=== PATIENT | male | born 1980 | race Caucasian/White ===

== ENCOUNTER 2020-09-15 05:03 | Emergency (ER) | payer OTHER, SELFPAY ==
[2020-09-15] VITALS (10 sets, daily range): BP systolic 151–202; BP diastolic 98–117; PULSE 69–72; RESP 18; TEMP 36.5; O2SAT 96–98
--- NOTE | ~2020-09-15 | CT_ITS ---
EXAMINATION: CT brain wo con DATE: 09/15/2020 05:44 INDICATION: Headache. TECHNIQUE: Computed tomography (CT) of the head was performed without intravenous contrast. The mA wa s adjusted according to patient size. Iterative reconstruction technique was employed. The dose-lengt h product was 605.33 mGy-cm. COMPARISON: Head CT 12/01/2007 FINDINGS: There is no intracranial hemorrhage, acute infarction, or abnormal intracranial mass lesion . The ventricles are normal in size. The orbits are normal. There is mucosal thickening in the parana griselda sinuses. The mastoid air cells are normal. There are many old healed facial bone fractures. IMPRESSION: 1. Normal brain. Reviewed, dictated and finalized at location A. REPAIR IMPRESSION: 1. Normal brain.
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
--- NOTE | 2020-09-15 05:39 | PC.NURSE ---
pt to ct via stretcher
[2020-09-15 05:42] LABS: Basophils Absolute Auto 0.1 K/mm3 (0.0-0.1); Basophils Percent Auto 0.5 % (0.2-1.2); Eosinophils Absolute Auto 0.3 K/mm3 (0-0.3); Eosinophils Percent Auto 2.9 % (0-4.4); Hematocrit 46.3 % (42.0-52.0); Hemoglobin 15.8 g/dL (14.0-18.0); Immature Granulocyte Absolute 0.04 K/mm3 (0.00-0.031); Immature Granulocyte Percent A 0.4 % (0-0.5); Lymphocytes Absolute Auto 1.15 K/mm3 (0.9-3.2); Lymphocytes Percent Auto 12.3 % (18.3-44.2); Mean Corpuscular HGB Conc 34.1 g/dl (32-36); Mean Corpuscular Hemoglobin 29.8 pg (26-34); Mean Corpuscular Volume 87.2 fl (80-100); Mean Platelet Volume 10.9 fl (7.4-10.4); Monocytes Absolute Auto 0.7 K/mm3 (0.1-0.6); Monocytes Percent Auto 7.2 % (2.6-8.5); Neutrophils Absolute Auto 7.2 K/mm3 (1.3-6.7); Neutrophils Percent Auto 76.7 % (45.5-73.1); Platelet Count Result 229 k/mm3 (150-375); Red Blood Count 5.31 M/mm3 (4.6-6.20); Red Cell Distribution Width 11.4 % (11.5-14.5); White Blood Count 9.4 K/mm3 (4.5-10.0)
[2020-09-15 05:59] LABS: Anion Gap 7 mmol/L (8-16); Blood Urea Nitrogen 18 mg/dL (9-20); Carbon Dioxide 29 mmol/L (22-30); Chloride 103 mmol/L (98-107); Estimated CRCL calculation 71 ml/min; Estimated Glomerular Filt Rate > 60; Glucose 112 mg/dL (75-110); Potassium 4.3 mmol/L (3.4-5.0); Sodium 139 mmol/L (137-145)
[2020-09-15] MEDS: KETOROLAC 30 MG/ML VIAL (*BKC) IV PUSH (06:00)
[2020-09-15] MEDS: PROMETHAZINE HCL 25 MG/ML AMPUL 12.5 MG IV PUSH (06:00)
[2020-09-15] MEDS: SODIUM CHLORIDE 0.9% IV 1,000 ML 999 ML IV CONT (06:01)
[2020-09-15] MEDS: diphenhydrAMINE HCl INJ 50 MG/ML VIAL 25 MG IV PUSH (06:52)
[2020-09-15 18:35] LABS: SARS-CoV-2 RNA PCR Negative
== END 2020-09-15 07:44 | disposition home or self-care (01) ==
PROVIDERS: Emergency Provider Emergency Medicine; PCP Physician Assistant
DX: G43.909 Migraine, unspecified, not intractable, without status migrainosus (principal); Z20.828 Contact with and (suspected) exposure to other viral communicable diseases; I10 Essential (primary) hypertension; F31.9 Bipolar disorder, unspecified; E78.00 Pure hypercholesterolemia, unspecified; G47.33 Obstructive sleep apnea (adult) (pediatric); F17.210 Nicotine dependence, cigarettes, uncomplicated
CPT/HCPCS: 36415; 70450; 80048; 85025; 87635; 96361; 96374; 96375; 99284; C9803; J1200; J1885; J2550; J7030; U0003

== ENCOUNTER 2020-09-17 15:39 | Emergency (ER) | payer OTHER, SELFPAY ==
[2020-09-17 15:46] VITALS: BP 169/115; PULSE 97; RESP 16; TEMP 37.7; O2SAT 98
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
[2020-09-17 17:35] VITALS: BP 137/105; PULSE 76; RESP 18; O2SAT 98
[2020-09-17] MEDS: KETOROLAC 30 MG/ML VIAL (*BKC) IV PUSH (17:57)
[2020-09-17] MEDS: SODIUM CHLORIDE 0.9% IV 1,000 ML 999 ML (17:57)
[2020-09-17] MEDS: PROCHLORPERAZINE EDISYLATE 10 MG/2 ML VIAL IV PUSH (17:59)
--- NOTE | 2020-09-17 18:02 | PC.NURSE ---
Note pt continually texting on the phone while giving meds and initiating IVF. Pt encouraged to let stop texting and to rest to allow meds to work. Warm blanket given to pt's neck for c/o neck pain with headache.
--- NOTE | 2020-09-17 18:33 | PC.NURSE ---
Called to pt's room, states I'm ready to go, I just, I'm itching to go . Asked patient if he's actually itching, states no, I'm ready to go . Note entire liter almost infused. Dr. Cuba made aware.
== END 2020-09-17 18:42 | disposition home or self-care (01) ==
PROVIDERS: Emergency Provider Emergency Medicine; PCP Physician Assistant
DX: R51.9 Headache, unspecified (principal); F31.9 Bipolar disorder, unspecified; E78.5 Hyperlipidemia, unspecified; I10 Essential (primary) hypertension; G47.30 Sleep apnea, unspecified
CPT/HCPCS: 96361; 96374; 96375; 99284; J0780; J1885; J7030

== ENCOUNTER 2024-04-12 12:44 | Outpatient (CLI) | payer OTHER, SELFPAY ==
--- NOTE | ~2024-04-12 | US_ITS ---
US renal BI 04/12/2024 14:23 Procedure: Realtime transabdominal ultrasound of the kidneys and bladder. Indication: Acute renal failure Comparison: No prior studies for comparison. Findings: Renal echotexture is normal bilaterally without hydronephrosis, contour deforming mass or r enal calculus. The right kidney measures 8.4 cm and left kidney measures 9.9 cm. Bladder within norm al limits. Impression: 1: Unremarkable renal ultrasound. No stones, masses or hydronephrosis. Reviewed, dictated and finalized at location B. Impression: 1: Unremarkable renal ultrasound. No stones, masses or hydronephrosis.
== END 2024-04-12 12:45 | disposition home or self-care (01) ==
LOC: ANHIMG 12:49
PROVIDERS: PCP Family Medicine; Visit Provider Physician Assistant Medical
DX: N17.9 Acute kidney failure, unspecified (principal)
CPT/HCPCS: 76775

== ENCOUNTER 2024-05-08 14:19 | Outpatient (CLI) | payer OTHER, SELFPAY ==
--- NOTE | ~2024-05-08 | US_ITS ---
EXAMINATION: US thyroid DATE: 05/08/2024 15:06 INDICATION: Nontoxic goiter. Palpable nodule. TECHNIQUE: Multiple ultrasound images of the thyroid were obtained. COMPARISON: None. FINDINGS: The right thyroid lobe measures 4.5 x 1.8 x 1.4 cm. The left thyroid lobe measures 4.5 x 1.7 x 1.5 c m. The isthmus measures 2 mm. There is normal echotexture and echogenicity throughout the thyroid gla nd. No discrete nodules identified. Normal vascular flow is present. IMPRESSION: Normal thyroid ultrasound findings. Reviewed, dictated and finalized at location K.
--- NOTE | 2024-05-08 14:48 | ECHO_ITS ---
Patient Info Name: Jose Luis Moyer Age: 43 years : 1980 Gender: Male Ht: 71 in Wt: 190 lbs BSA: 2.09 m2 HR: 78 bpm BP: 140 / 85 mmHg Heart Rhythm: Sinus Rhythm Technical Quality: Good Exam Date: 05/08/2024 3:36 PM Exam Location: Echo Lab Patient Status: Outpatient Admit Date: 05/08/2024 Staff Ordering Physician: Maxine Alcaraz PA-C Spanisher: Latia Hardy RDCS Attending Provider: Maxine Alcaraz PA-C Referring Physician: Kieran BRIDGES; Exam Type: CA echo doppler color flow Study Info Indications - CHEST PAIN, UNSP Complete two-dimensional, color flow and Doppler transthoracic echocardiogram is performed. Summary 1. Complete two-dimensional, color flow and Doppler transthoracic echocardiogram is performed. 2. Left ventricular chamber dimension is normal. 3. Left ventricular systolic function is normal, estimated at 60-65%. 4. The left ventricular diastolic function is grade I diastolic dysfunction. 5. E/e' 4 is not elevated. 6. There is trace tricuspid valve regurgitation. 7. No pulmonary hypertension, estimated pulmonary arterial systolic pressure is 24 mmHg. 8. There is trace pulmonic regurgitation. Left Ventricle E/e' 4 is not elevated. Left ventricular chamber dimension is normal. Left ventricular systolic function is normal, estimated at 60-65%. The left ventricular diastolic function is grade I diastolic dysfunction. Right Ventricle Right ventricular systolic function is normal and with normal TAPSE 2.3 cm. Right ventricular chamber dimension is normal. Left Atria Left atrial chamber dimension is normal. Right Atria Right atrial chamber dimension is normal. Aortic Valve The aortic valve is trileaflet. There is no aortic valve stenosis. There is no aortic valve regurgitation. Pulmonic Valve There is trace pulmonic regurgitation. Mitral Valve There is no mitral valve stenosis. There is no mitral valve regurgitation. Tricuspid Valve There is trace tricuspid valve regurgitation. No pulmonary hypertension, estimated pulmonary arterial systolic pressure is 24 mmHg. Pericardium/Pleural There is no pericardial effusion. Inferior Vena Cava Normal inferior vena cava with >50% collapse upon inspiration consistent with normal right atrial pressure, 5 mmHg. Aorta The aortic root size at the sinus of Valsalva is normal. Left Ventricular Outflow Tract Name Value Normal LVOT 2D LVOT Diameter 2.0 cm LVOT Doppler LVOT Peak Gradient 4 mmHg LVOT Mean Gradient 2 mmHg LVOT VTI 16 cm LVOT VTI/AV VTI Ratio 0.9 LVOT Stroke Volume 50 ml LVOT CO 4.4 l/min LVOT CI 2.1 l/min/m2 Pulmonic Valve Name Value Normal PV Doppler PV Peak Gradient 4 mmHg Mitral Valve
--- NOTE | 2024-05-08 14:48 | ECG_ITS ---
Test Date: 2024-05-08 15:12:35 Measurements Intervals [place] Rate: 84 P: 21 RI: 115 QRS: 37 QRSD: 110 T: 46 QT: 366 QTc: 435 Interpretive Statements SINUS RHYTHM WITH SHORT RI INTERVAL INCOMPLETE RIGHT BUNDLE BRANCH BLOCK No previous ECG available for comparison Electronically Signed On 05-09-2024 17:02:24 CDT by Steve Cardona M.D.
== END 2024-05-08 14:20 | disposition home or self-care (01) ==
PROVIDERS: PCP Family Medicine; Visit Provider Student in an Organized Health Care Education/Training Program
DX: R07.9 Chest pain, unspecified (principal); R06.00 Dyspnea, unspecified; R04.9 Hemorrhage from respiratory passages, unspecified; I45.10 Unspecified right bundle-branch block
CPT/HCPCS: 76536; 93005; 93306

== ENCOUNTER 2025-05-16 08:35 | Outpatient (CLI) | payer OTHER, SELFPAY ==
--- OUTSIDE RECORDS SUMMARY | 2025-05-16 08:43 | XMS_ITS | Continuity of Care Document ---
Author Organization [facility] Address [id number] [place] [address] [address] [place] [address] Phone Care Team Providers Care Ic Design Manager Name Role Phone Estefania Bryan Unavailable Unavailable Advance Directives Directive Yes / No Effective Date File Name No Information Encounters Encounter Description Practice Location Reason(s) For Visit Diagnoses Date Provider Providers Copied on Encounter [facility], [address], [place], [place], [id number], [place] tel:[phone] [facility] No Information [address] , [address], [place], [address], [place]. tel:[phone] Family History Family Member Type Diagnosis Age At Onset No Information Payers Payer name Insurance type Covered republican ID Authoriza tion(s) No Information Social History Type Description Quantity Date Captured Comments Sex Male Smoking Status No Information Chief Complaint And Reason For Visit No Information Reason For Referral Reason For Referral No Information History Of Present Illness Encounter Date Complaint History Of Prese nt Illness No Information Functional Status Date Functional Assessmen t No Information Instructions Date Instruction Additional Infor mation No Information Assessments Type Assessment Date No Information Patient Care Teams Name Effective Dates (start - stop) Status Members No Information
--- OUTSIDE RECORDS SUMMARY | 2025-05-16 08:43 | XMS_ITS | Clinical Summary ---
Author Organization [facility] Address [address] [place] [phone] Phone Care Team Providers Care Community Health Consultant Name Role Phone Rachel Edmondson MD Primary Care Provider [phone] Allergies No known active allergies Medications lisinopril (PRINIVIL,ZESTR IL) 20 MG tablet Take 20 mg by mouth daily Active atorvastatin (LIPITOR) 40 MG tablet Take 40 mg by mouth 1 (one) time each day Active lamoTRIgine (LaMICtal) 200 MG tablet Take 200 mg by mouth 1 (one) time each day Active modafinil (PROVIGIL) 200 MG tablet Take 200 mg by mouth 1 (one) time each day Active ALPRAZolam XR (XANAX XR) 3 MG 24 hr tablet Take 3 mg by mouth 1 (one) time each day in the morning Active buPROPion SR (WELLBUTRIN SR) 100 MG 12 hr tablet TAKE 1 TABLET BY MOUTH ONCE DAILY IN THE MORNING 0 07/01/2019 Active buPROPion SR (WELLBUTRIN SR) 200 MG 12 hr tablet TAKE 1 TABLET BY MOUTH ONCE DAILY IN THE MORNING 1 09/06/2019 Active Active Problems Problem Noted Date Diagnosed Date Proteinuria Hypertension Back pain Scoliosis Obstructive sleep apnea syndrome Hyperlipidemia Family History Medical History Relation Comments Diabetes Father Kidney disease Father Nephrolithiasis Mother Kidney cancer Paternal Grandfather Kidney disease Paternal Grandfather Relation Status Comments Father Mother Paternal Grandfather Social History Tobacco Use Types Packs/Day Years Used Date Smoking Tobacco: Heavy Smoker Cigarettes Smokeless Tobacco: Never Tobacco Cessation:Ready to Q uit: No; Counseling Given: Yes Alcohol Use Standard Drinks/Week Comments Not Currently 0 (1 standard drink = 0.6 oz pur e alcohol) Sex and Gender Information Value Date Recorded Sex Assigned at Not on file Legal Sex Male 8:51 AM MDT Gender Identity Not on file Sexual Orientation Not on file Last Filed Vital Signs Vital Sign Reading Time Taken Comments Blood Pressure 120/68 09/10/2019 3:23 PM FITTER HELPER Pulse - - Temperature 36.2 C (97.1 F) 09/10/2019 3:23 PM FITTER HELPER Respiratory Rate 18 09/10/2019 3:23 PM FITTER HELPER Oxygen Saturation - - Inhaled Oxygen Concentration - - Weight 81.2 kg (179 lb) 09/10/2019 3:23 PM FITTER HELPER Height 180.3 cm (5' 11) 09/10/2019 3:23 PM FITTER HELPER Body Mass Index 24.97 09/10/2019 3:23 PM FITTER HELPER Plan of Treatment Health Maintenance Due Date Last Done Comments Influenza Vaccine (#1) 2025 Insurance Care Teams Community Health Consultant Relationship Specialty Start Date End Date Rachel Edmondson MD [address] [facility] [address] [place] [address] PCP - General Internal Medicine 02/08/19
--- OUTSIDE RECORDS SUMMARY | 2025-05-16 08:43 | XMS_ITS | Clinical Summary ---
Author Organization [facility] [address] [facility] [address] Address [address] [place] [address] Care Team Providers Care Musical String Maker Name Role Phone Carla Mayfield MD Primary Care Provider [phone] Allergies No known active allergies Medications ALPRAZolam XR (XANAX XR) 3 mg 24 hr tablet Take 1 tablet (3 mg total) by mouth daily Active lisinopriL (PRINIVIL,ZESTR IL) 10 mg tablet Take 1 tablet (10 mg total) by mouth daily 04/24/2022 Active cariprazine (Vraylar) 1.5 mg capsule capsule TAKE 1 CAPSULE BY MOUTH ONCE DAILY FOR 30 DAYS Active methylphenidate ER (CONCERTA) 54 mg CR tablet TAKE 1 TABLET BY MOUTH ONCE DAILY IN THE MORNING FOR 30 DAYS Active lamoTRIgine (LaMICtal) 200 mg tablet Take 1 tablet (200 mg total) by mouth nightly Active Active Problems Problem Noted Date Diagnosed Date Back pain 08/17/2024 Hyperlipidemia 08/17/2024 Hypertension 08/17/2024 Obstructive sleep apnea syndrome 08/17/2024 Proteinuria 08/17/2024 Scoliosis 08/17/2024 Dizziness 07/09/2021 Medical History Medical History Date Comments Sleep apnea Hyperlipidemia Hypertension Family History Medical History Relation Name Comments Diabetes Father Heart attack Father Relation Name Status Comments Father Social History Tobacco Use Types Packs/Day Years Used Date Smoking Tobacco: Former Cigarettes Tobacco Cessation:Counseling Given: Not Answered Personal Safety Answer Date Recorded Getting School Help Needed Not on file 12/16 Sex and Gender Information Value Date Recorded Sex Assigned at Not on file Legal Sex Male 11:59 PM MOLD PARTER Gender Identity Not on file Sexual Orientation Not on file Obstetrics History Last Filed Vital Signs Vital Sign Reading Time Taken Comments Blood Pressure 143/98 07/11/2024 3:39 PM CDT Pulse 106 07/11/2024 3:39 PM CDT Temperature 36.7 C (98 F) 07/29/2014 5:25 AM CDT Respiratory Rate - - Oxygen Saturation 95% 07/11/2024 3:39 PM CDT Inhaled Oxygen Concentration - - Weight 89.1 kg (196 lb 6.4 oz) 07/11/2024 3:39 P M CDT Height 180.3 cm (5' 11) 07/11/2024 3:39 PM CDT Body Mass Index 27.39 07/11/2024 3:39 PM CDT Plan of Treatment Health Maintenance Due Date Last Done Comments Colon Cancer Screening-Colonoscopy 1980 Depression Screening 1980 Hepatitis C Screening 1980 Regular Well Visit/Exam 18-64 1997 HPV Vaccines (1 - 3-dose SCD M series) 2006 DTaP/Tdap/Td Vaccine (3 - Td or Tdap) 10/23/2023 10/23/2013, 09/08/2012, 10/03/1992 Influenza Vaccine (#1) 2025 09/08/2012 Hepatitis B Screening Completed 06/06/2013 , 01/03/2013 Pneumococcal vaccine <65 Aged Out No longer eligible based on patient's age to complete this topic Insurance [facility] CHOICE PLUS Member Subscriber Plan / Payer (Ef fective 2022-Present) Name:Jose Luis Moyer Jr. Relation to Subscriber:Self Name:Jose Luis Moyer Jr. Payer ID:[id number] (NAIC) Type:[facility] HMO/PPO Address: [id number] Member Subscriber Plan / Payer (Ef fective 2022-Present) Name:Jose Luis Moyer Jr. Relation to Subscriber:Self Name:Jose Luis Moyer Jr. Payer ID:[id number] (NAIC) Type:[facility] HMO/PPO Address: [place] [id number] Care Teams Musical String Maker Relationship Specialty Start Date End Date Carla Mayfield MD PCP - General Family Medicine 09/24/24
--- OUTSIDE RECORDS SUMMARY | 2025-05-16 08:43 | XMS_ITS | Patient Health Record ---
Author Organization [facility] [employer] [facility] Address [address] [facility] [address] [place] [address] Care Team Providers Care Extruder Tender Name Role Phone Carla Mayfield MD Primary Care Provider Tyrone Lea Unavailable [phone] Allergies No Known Allergies Reason For Referral No Information Medications Medication SIG (Take, Route, Frequency, Duration) Notes Start Date End Date Status Lisinopril 10 MG Oral 11/16/2023 No t-Taking ALPRAZolam ER 3 MG 1 tablet in the morn ing Orally Once a day; Duration: 30 days 04/27/2024 Not-Taking Vraylar 3 MG 1 capsule Orally Onc e a day; Duration: 30 days 04/27/2024 Not-Takin g lamoTRIgine 200 MG 1 tablet Oral Once a day; Duration: 30 days 11/16/2023 Not-Takin g Meclizine HCl 25 MG Oral 11/16/2023 Not-Taking Atorvastatin Calcium 40 MG TAKE 1 TABLET BY MOUTH NIGHTLY Oral; Duration: 30 Days Active traZODone HCl 50 MG 0.5 to 1 tablet at bedtime Orally Once a day; Duration: 30 days As needed 04/24/2025 Active ALPRAZolam ER 3 MG 1 tablet Oral Once a day; Duration: 30 days 06/12/2024 Not-Takin g Vraylar 3 MG 1 capsule Oral Once a day; Duration: 30 days 11/16/2023 Not-Takin g amLODIPine Besylate 10 MG TAKE 1 TABLET BY MOUTH ONCE DAILY Oral; Duration: 30 Days Active lamoTRIgine 25 MG 1 tablet once a day for 14 days, 2 tablets once a day for 16 days Orally see sign; Duration: 30 days 04/24/2025 Active Losartan Potassium 100 MG TAKE 1 TABLET BY MOUTH ONCE DAILY Oral; Duration: 30 Days Active hydrOXYzine HCl 25 MG 1 tablet Orally three times a day; Duration: 30 days As needed 05/02/2025 Active QUEtiapine Fumarate 50 MG 1 tablet at be dtime Oral Once a day; Duration: 30 days Active Immunizations Vaccine Route Administration Date Status Comme nts Hep B, adult dosage Unknown 01/03/2013 Administered Hep B, adult dosage Unknown 06/06/2013 Administered Influenza, seasonal, injecta ble, preservative free, 3 yrs and above Unknown 09/08/2012 Administered Td (adult) preservative free Unknown 10/03/1992 Adminis tered Tdap Unknown 09/08/2012 Administered Tdap Unknown 10/23/2013 Administered Social History Sex Assigned At : Social History Observation Description Sex Assigned At Male Problems Problem Type SNOMED Code ICD Code Onset Dates Problem Status W/U Status Risk Notes Problem Bipolar affective disorder, currently depressed, moderate (318187452) Bipolar disorder, current episode depressed, moderate (F31.32) 11/16/19 24 Active confirmed Problem Mixed bipolar I disorder (44188146) Bipolar disorder, current episode mixed, unspecified (F31.60) Active confirmed Problem Generalized anxiety disorder (28112343) Generalized anxiety disorder (F41.1) 11/16/19 24 Active confirmed Problem Attention deficit hyperactivity disorder, predominantly inattentive type (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) Attention-deficit hyperactivity disorder, predominantly inattentive type (F90.0) 01/27/20 24 Active confirmed Vital Signs Heart Rate 106 /min 04/24/2025 Height-cm 180.34 cm 04/24/2025 Blood pressure diastolic 97 mm Hg 04/24/2025 Weight-kg 96.16 kg 04/24/2025 Height 71.00 in 04/24/2025 Blood pressure systolic 136 mm Hg 04/24/2025 Weight 212.0 lbs 04/24/2025 BMI 29.56 kg/m2 04/24/2025 Encounters Encounter Location Date Provider Diagnosis [facility] [employer] [facility] [address] [address] 07/24/2024 Tyrone Rawls [facility] [employer] [facility] [address] [address] 08/01/2024 Tyrone Rawls [facility], [facility] [address] [place] [address] 10/16/2024 Tyrone Rawls Bipolar disorder, current episode mixed, unspecified F31.60 ; Attention-deficit hyperactivity disorder, predominantly inattentive type F90.0 and Generalized anxiety disorder F41.1 [facility], [facility] [address] [place] [address] 11/22/2024 Tyrone Rawls [facility], [facility] [address] [place] [address] 04/03/2025 Tyrone Rawsl [facility], [facility] [address] [place] [address] 04/24/2025 Tyrone Rawls Bipolar disorder, current episode mixed, unspecified F31.60 ; Attention-deficit hyperactivity disorder, predominantly inattentive type F90.0 ; Generalized anxiety disorder F41.1 and Insomnia due to other mental disorder F51.05 [facility], [facility] [address] [place] [address] 06/12/2024 Tyrone Beckmana Generalized anxiety disorder F41.1 ; Attention-deficit hyperactivity disorder, predominantly inattentive type F90.0 and Bipolar disorder, current episode mixed, unspecified F31.60 [facility], [facility] [address] [place] [address] 07/11/2024 Tyrone Rawls [facility], [facility] [address] [place] [address] 07/12/2024 Tyrone Rawls Bipolar disorder, current episode mixed, unspecified F31.60 ; Attention-deficit hyperactivity disorder, predominantly inattentive type F90.0 and Generalized anxiety disorder F41.1 [facility], [facility] [address] [place] [address] 07/24/2024 Tyrone Rawls [facility], [facility] [address] [place] [address] 08/09/2024 [facility], [facility] [address] [place] [address] 10/18/2024 Tyrone Rawls [facility], [facility] [address] [place] [address] 10/22/2024 Tyrone Rawls Bipolar disorder, current episode mixed, unspecified F31.60 [facility] [employer] [facility] [address] [place] [address] 11/05/2024 [facility] [address] [place] [address] 04/25/2025 Tyrone Rawls [facility], [facility] [address] [place] [address] 04/29/2025 Tyrone Rawls Bipolar disorder, current episode depressed, moderate F31.32 Assessments Encounter Date Diagnosis (ICD Code) Assessment Notes Treatment Notes Treatment Clinical Notes Section Notes 04/29/2025 Bipolar disorder, current episode depressed, moderate (ICD-10 - F31.32) 04/24/2025 Attention-defici t hyperactivity disorder, predominantly inattentive type (ICD-10 - F90.0) 06/12/2024 Generalized anxiety disorder (ICD-10 - F41.1) 06/12/2024 Attention-defici t hyperactivity disorder, predominantly inattentive type (ICD-10 - F90.0) 07/12/2024 Bipolar disorder, current episode mixed, unspecified (ICD-10 - F31.60) 10/16/2024 Bipolar disorder, current episode mixed, unspecified (ICD-10 - F31.60) 10/22/2024 Bipolar disorder, current episode mixed, unspecified (ICD-10 - F31.60) 04/24/2025 Bipolar disorder, current episode mixed, unspecified (ICD-10 - F31.60) 04/24/2025 Generalized anxiety disorder (ICD-10 - F41.1) 07/12/2024 Attention-defici t hyperactivity disorder, predominantly inattentive type (ICD-10 - F90.0) 10/16/2024 Attention-defici t hyperactivity disorder, predominantly inattentive type (ICD-10 - F90.0) 06/12/2024 Bipolar disorder, current episode mixed, unspecified (ICD-10 - F31.60) 07/12/2024 Generalized anxiety disorder (ICD-10 - F41.1) 10/16/2024 Generalized anxiety disorder (ICD-10 - F41.1) 04/24/2025 Insomnia due to other mental disorder (ICD-10 - F51.05) 10/16/2024 Other 1. Major Depressive Disorder: - Patient reports increased depression since March or April, with fatigue, anhedonia, and lack of motivation. - Stopped taking Vraylar and other medications a few months ago. Plan: - Restart Vraylar at 1.5 mg daily for one week, then increase to 3 mg daily. - Reevaluate in 2 weeks to assess the effectiveness of the treatment. 2. Anxiety: - Patient reports anxiety about going out and has been off alprazolam ER for the last couple of months. Plan: - Prescribe propranolol 20 mg twice a day to help with blood pressure and anxiety symptoms, including racing heart. 3. Hypothyroidism: - Elevated TSH level of 5.2 (normal range up to 3.7). Plan: - Refer patient to primary care provider for further investigation and management of thyroid function. 4. Right Bundle Branch Block: - Patient reports recent hospitalization and diagnosis of a blockage in the right bundle branch of the heart. Plan: - Encourage patient to follow up with primary care provider and paint coating machine operator for further evaluation and management. 5. Kidney Function: - Patient reports kidneys operating at 56%. Plan: - Recommend patient to follow up with primary care provider for further evaluation. 6. Pulmonology: - Patient has been pushing off a scheduled appointment with a it admin. Plan: - Encourage patient to schedule and attend the appointment with the it admin for evaluation and management of any pulmonary issues. 7. Medication Management: - Patient has been off blood pressure medication and other prescribed medications for a while. Plan: - Reinstate propranolol 20 mg twice a day for blood pressure management. - Encourage patient to follow up with primary care provider for further medication management and monitoring. 8. Follow-up: - Schedule a follow-up appointment in 2 weeks to evaluate the effectiveness of the treatment plan. 9. Pharmacy: - [facility] pharmacy in [place]. 04/24/2025 Other Jose Luis Kaur, male patient with history of hypertension, chronic kidney disease (CKD), and psychiatric issues, presenting with recent hospitalization for hypertensive urgency and concerns about medication side effects. Hypertension Assessment: Patient reports recent hospitalization (approximately March 20-) for hypertensive urgency with blood pressure readings in 180-190s/140-150s range, refractory to IV medications. Currently managed with losartan 100 mg and amlodipine 10 mg. Associated symptoms included frequent headaches. Hypertension may be contributing to or exacerbated by declining kidney function. Plan: - Continue losartan 100 mg - Continue amlodipine 10 mg - Monitor blood pressure and kidney function Chronic Kidney Disease Assessment: Patient has confirmed CKD with fluctuating eGFR. Recent lab results show eGFR of 27 on April 03, improved to current level of 44 (baseline 58). Creatinine was 2.88 on April 03. TSH has normalized to 3.81. CKD etiology not specified but may be related to hypertension. Plan: - Monitor renal function - Adjust medications as needed to avoid further kidney damage - Consider nephrology referral if not already involved in care Bipolar Disorder Assessment: Patient reports current symptoms of irritability and anxiety, though anxiety has improved. Previously treated with Vraylar, which was effective but discontinued due to cost ($1800). Currently on quetiapine 50 mg, which has led to significant weight gain (20-30 pounds). Patient expresses interest in returning to lamotrigine for potential weight loss benefits. Plan: - Initiate lamotrigine: - Start at 25 mg once daily for 2 weeks - Increase to 50 mg once daily for 2 weeks - Advised patient to monitor for rash (known side effect) - Taper quetiapine: - Reduce to 25 mg (half tablet) at bedtime - Start trazodone for sleep: - Begin with 25 mg (half of 50 mg tablet) at bedtime - May increase to 50 mg if needed - Follow up in 1 month Weight gain Assessment: Patient reports 20-30 pound weight gain attributed to quetiapine use. Expresses desire to lose weight. Plan: - Transition from quetiapine to lamotrigine may assist with weight loss - Monitor weight during medication transition the note is transcribed using speech recognition software. It is a reflection of a visit with the patient. It might have some inaccuracy, including medication names and transcribing errors, though efforts have been made to correct them. Plan Of Treatment Next Appt Details Provider Name:Tyrone villalta, 05/23/2025 10:00:00 AM, [address], [address], [place], [address], Insurance Providers Payer Name Payer Address Payer Phone Subscriber Number Group Number Insured Name Patient Relationship to Insured Coverage Start Date Coverage End Date [facility] [address] [address] [place] [address] [id number] JOSE LUIS KAUR Self - patient is the insured Medical (General) History Medical History History ICD Code Problems: Attention deficit hyperactivit y disorder Bipolar affective disorder, current epis ode depression Bipolar affective disorder, current epis ode mixed Essential hypertension Generalized anxiety disorder Insomnia disorder related to another men jhon disorder , Surgical History Surgery Date(Month/Year) Other 10/03/2007
--- OUTSIDE RECORDS SUMMARY | 2025-05-16 08:43 | XMS_ITS | Clinical Summary ---
Author Organization [facility] [employer] Address [address] [facility] [place] [address] Care Team Providers Care Backhaul Driver Name Role Phone Elian Cardenas MD Primary Care Provider [phone] [facility] [employer],non-owned Affiliates and Associated Physician Practices is amultiple site organization consisting of ambulatory clinics and hospital sitesin [place], [place], [place] and [place]. This disclosure is being madepursuant to the Care Everywhere program and may not contain all information available regarding this patient. Last updated 18.[employer] Allergies No known active allergies Medications * Be aware that medications may not be up to date on this document. Alwaysverify current medications with the patient. lisinopril (PRINIVIL; ZESTRIL) 20 MG tablet Take 20 mg by mouth once daily. Active hydrocodone-acet aminophen (LORTAB) 10-500 MG tablet Take 1 Tab by mouth every 4 hours as needed. Active Social History Tobacco Use Types Packs/Day Years Used Date Smoking Tobacco: Never Smokeless Tobacco: Never Alcohol Use Standard Drinks/Week Comments Yes 0 (1 standard drink = 0.6 oz pur e alcohol) rarely Sex and Gender Information Value Date Recorded Sex Assigned at Not on file Legal Sex Male 10:07 AM CDT Gender Identity Not on file Sexual Orientation Not on file Last Filed Vital Signs Vital Sign Reading Time Taken Comments Blood Pressure 127/77 01/13/2013 11:18 AM CDT Pulse 81 01/13/2013 11:23 AM CDT Temperature 37.4 C (99.4 F) 01/10/2013 12:47 PM CDT Respiratory Rate 10 01/13/2013 10:27 AM CDT Oxygen Saturation 99% 01/13/2013 11:25 AM CDT Inhaled Oxygen Concentration - - Weight 92.5 kg (204 lb) 01/10/2013 12:47 PM CDT Height 177.8 cm (5' 10) 01/10/2013 12:47 PM CDT Body Mass Index 29.27 01/10/2013 12:47 PM CDT Plan of Treatment Health Maintenance Due Date Last Done Comments COLOGUARD (AGES 45-75) - COL ON CA SCREENING 1979 CT COLONOGRAPHY - COLON CA SCREENING 1980 FIT - COLON CA SCREENING 1980 FLEX SIG - COLON CA SCREENING 1979 LIPID TESTING 1979 HIV SCREENING 1994 HEPATITIS C SCREENING 08/22/1997 DTAP/TDAP/TD VACCINES (1 - Tdap) 1998 HEPATITIS B VACCINE (1 of 3 - 19+ 3-dose series) 1998 HPV VACCINE (1 - 3-dose SCDM series) 2006 COLON MONITORING 01/13/2023 01/13/2013, 01/13/2013 COLONOSCOPY - COLON CA SCREENING 01/13/2023 01/13/2013, 01/13/2013 Colorectal Cancer Screening 01/13/2023 COVID-19 VACCINE (1 - 2023-2 5 season) 2024 DEPRESSION SCREENING 10/03/2024 INFLUENZA VACCINE (#1) 2025 ZOSTER VACCINE (1 of 2) 2029 HIB VACCINE Aged Out No longer eligi ble based on patient's age to complete this topic MENINGOCOCCAL (Group B) VACCINE SHARED DECISION-MAKING Aged Out No longer eligible based on patient's age to complete this topic MENINGOCOCCAL GROUPS A/C/Y/W VACCINE Aged Out No longer eligible b ased on patient's age to complete this topic PNEUMOCOCCAL VACCINE Aged Out No long er eligible based on patient's age to complete this topic Procedures Procedure Name Priority Date/Time Associated Diagnosis Comments ENDOSCOPY, COLON, SCREENING Routine 01/13/2013 10:45 AM CDT from Last 3 Months or Most Recently Relevant to Health Maintenance Results * ENDOSCOPY, COLON, SCREENING (01/13/2013 10:45 AM CDT) Narrative [facility] ENDOSCOPY - 01/13/2013 10:45 AM CDT Procedure Note Meredith Gupta MD - 01/13/2013 10:45 AM CDT us Meredith Gupta MD GI PROCEDURE ORDERABLES Final R esult [facility] ENDOSCOPY from Last 3 Months or Most Recently Relevant to Health Maintenance Insurance [employer] Care Teams Backhaul Driver Relationship Specialty Start Date End Date Elian Cardenas MD [address] [place] [address] PCP - General Family Medicine 01/12/13
--- NOTE | 2025-05-16 09:10 | ECHO_ITS ---
Patient Info Name: Jose Luis Moyer Age: 44 years : 1980 Gender: Male Ht: 71 in Wt: 213 lbs BSA: 2.22 m2 HR: 79 bpm BP: 143 / 101 mmHg Technical Quality: Good Exam Date: 05/16/2025 9:18 AM Patient Status: O Admit Date: 05/16/2025 Exam Type: CA echo doppler color flow Complete two-dimensional, color flow and Doppler transthoracic echocardiogram is performed. Thoroughbred Horse Farm Manager: Virgen Ye Attending Provider: Maxine Alcaraz Summary 1. Complete two-dimensional, color flow and Doppler transthoracic echocardiogram is performed. 2. Left ventricular chamber dimension is normal. 3. Left ventricular systolic function is normal, estimated at 65-70. 4. The left ventricular diastolic function is normal. 5. E/e' 5 is not elevated. 6. There is trace mitral valve regurgitation. 7. There is mild tricuspid valve regurgitation. 8. No pulmonary hypertension, estimated pulmonary arterial systolic pressure is 30 mmHg. 9. There is trace pulmonic regurgitation. Left Ventricle E/e' 5 is not elevated. Left ventricular chamber dimension is normal. Left ventricular systolic function is normal, estimated at 65-70. The left ventricular diastolic function is normal. Right Ventricle Right ventricular chamber dimension is normal. Right ventricular systolic function is normal. Left Atria Left atrial chamber dimension is normal. Right Atria Right atrial chamber dimension is normal. Aortic Valve The aortic valve is trileaflet. There is no aortic valve stenosis. There is no aortic valve regurgitation. Pulmonic Valve There is trace pulmonic regurgitation. Mitral Valve There is no mitral valve stenosis. There is trace mitral valve regurgitation. Tricuspid Valve There is mild tricuspid valve regurgitation. No pulmonary hypertension, estimated pulmonary arterial systolic pressure is 30 mmHg. Pericardium/Pleural There is no pericardial effusion. Inferior Vena Cava Normal inferior vena cava with >50% collapse upon inspiration consistent with normal right atrial pressure, 5 mmHg. Aorta The aortic root size at the sinus of Valsalva is normal. Left Ventricular Outflow Tract Name Value Normal LVOT 2D LVOT Diameter 2.2 cm LVOT Doppler LVOT Peak Velocity 102 cm/s LVOT Peak Gradient 4 mmHg LVOT Mean Gradient 2 mmHg LVOT VTI 22 cm LVOT Stroke Volume 81 ml LVOT CO 6.4 l/min LVOT CI 2.9 l/min/m2 Pulmonic Valve Name Value Normal RVOT Doppler RVOT Peak Velocity 63 cm/s RVOT Peak Gradient 2 mmHg PV Doppler PV Peak Velocity 111 cm/s PV Peak Gradient 5 mmHg Mitral Valve Name Value Normal MV Diastolic Function MV E Peak Velocity 60 cm/s MV A Peak Velocity 53 cm/s MV E/A 1.1 MV Decel Time (PW) 253 ms MV Annular TDI MV E/e' (Septal) 5.6 MV E/e' (Lateral) 6.0 MV E/e' (Average) 5.8 Tricuspid Valve Name Value Normal TV Regurgitation Doppler TR Peak Velocity 251 cm/s TR Peak Gradient 21 mmHg Estimated PAP/RSVP RA Pressure 5 mmHg <=5 PA Systolic Pressure 30 mmHg <36 RV Systolic Pressure 30 mmHg <36 Aortic Valve Name Value Normal AV Doppler AV Peak Velocity 110 cm/s AV Peak Gradient 5 mmHg AV Area (Cont Eq Dav) 3.5 cm2 AV DI (Dav) 0.93 AV Regurgitation 2D LVOT Area 3.8 cm2 Ventricles Name Value Normal LV Dimensions 2D/MM IVS Diastolic Thickness (2D) 1.0 cm 0.6-1.0 LVID Diastole (2D) 4.7 cm 4.2-5.8 LVIW Diastolic Thickness (2D) 0.9 cm 0.6-1.0 LVID Systole (2D) 2.9 cm 2.5-4.0 LVOT Diameter 2.2 cm LV Mass (2D Cubed) 154.33 g 88.00-224.00 LV Mass Index (2D Cubed) 69 g/m2 49-115 Relative Wall Thickness (2D) 0.40 <=0.42 LV Fractional Shortening/Ejection Fraction 2D/MM LV Fractional Shortening (2D) 38 % 25-43 LV EF (2D Teichholz) 68 % LV Diastolic Volume (4C MOD) 115 ml LV EF (4C MOD) 61 % LV Diastolic Volume (2C MOD) 79 ml LV EF (2C MOD) 58 % LV Diastolic Volume (BP MOD) 102 ml 62-150 LV Diastolic Volume Index (BP MOD) 46 ml/m2 34-74 LV Systolic Volume (BP MOD) 40 ml 21-61 LV Systolic Volume Index (BP MOD) 18 ml/m2 11-31 LV EF (BP MOD) 61 % 52-72 LV Diastolic Length (4C) 8.6 cm LV Systolic Length (4C) 7.2 cm LV Stroke Volume (4C MOD) 70 ml Atria Name Value Normal LA Dimensions LA Volume (4C A-L) 26 ml LA Volume (BP A-L) 35 ml RA Dimensions RA Systolic Major [place] Length (4C) 4.8 cm 2.1-2.7 RA Area (4C) 16.4 cm2 <=18.0 Report Signatures
== END 2025-05-16 08:36 | disposition home or self-care (01) ==
PROVIDERS: PCP Family Medicine; Visit Provider Student in an Organized Health Care Education/Training Program
DX: R07.9 Chest pain, unspecified (principal); I36.1 Nonrheumatic tricuspid (valve) insufficiency
CPT/HCPCS: 93306

== ENCOUNTER 2025-08-15 08:43 | Outpatient (CLI) | payer OTHER, SELFPAY ==
--- NOTE | ~2025-08-15 | CT_ITS ---
EXAMINATION: CT diagnostic chest wo con DATE: 08/15/2025 08:59 INDICATION: Solitary pulmonary nodule TECHNIQUE: Computed tomography (CT) of the chest was performed without intravenous contrast. Additional 3D reconstructions utilizing coronal maximum intensity projection (MIP) were performed. Automated exposure control and iterative reconstruction technique were employed. The dose-length product was 49 3.50 mGy-cm. COMPARISON: 06/14/2014 FINDINGS: No significant interval change since 2013 in a 5 mm pleural-based nodule posteriorly in the right lower lobe as well as a few additional <4 mm likely benign noncalcified granulomata in the right lower lobe. No new or enlarging pulmonary nodules, pneumonia, pulmonary edema or pleural effusion. Heart size is normal. No pericardial effusion. Thoracic aorta is normal in caliber. No pathologically enlarged thoracic lymphadenopathy. Mild bilateral gynecomastia. Visualized upper abdomen is unremarkable. Mild thoracic dextrocurvature with minimal spondylosis. IMPRESSION: 1. No change since 2013 and a few small right lower lobe nodules likely sequela of old granulomatous disease. No new or enlarging pulmonary nodules. Reviewed, dictated and finalized at location A. [facility]
== END 2025-08-15 08:44 | disposition home or self-care (01) ==
LOC: MICIMG 08:44
PROVIDERS: PCP Family Medicine Adolescent Medicine; Visit Provider Student in an Organized Health Care Education/Training Program
DX: R91.1 Solitary pulmonary nodule (principal)
CPT/HCPCS: 71250